=== PATIENT | female | born 1950 | race Caucasian/White ===

== ENCOUNTER 2020-05-20 11:04 | Emergency (ER) | payer MEDICARE ==
[~2020-05-20] VITALS: Ht 147.3 cm; Wt 92.0 kg
[~2020-05-20 11:04] MED LIST: CALC-138 PO; CHOL400C PO; GLIP10TA24 PO; METF500T27 PO; PRAV20TA2 PO
--- NOTE | 2020-05-20 11:22 | NUR ---
ITZEL LANCASTER AT BEDSIDE.
--- NOTE | 2020-05-20 11:37 | NUR ---
PT IN RAD.
--- NOTE | 2020-05-20 12:08 | NUR ---
PT TRANSFERED TO WHEELCHAIR FROM [facility] W/O JESUS MANUEL. PT WHEELED TO BR ACCOMPANIED BY FAMILY MEMBER.
--- NOTE | 2020-05-20 12:19 | NUR ---
PT RETURNED TO ROOM W/O INCIDENT. URINE COLLECTED AND SENT TO LAB. FRANCISCO CRAVAJAL. AWAITING RESULTS.
[2020-05-20 12:28] LABS: MICROSCOPIC AUTO
[2020-05-20] MEDS ORDERED: HYDROcodone/APAP 5/325 TABLET PO ONE (12:30)
[2020-05-20] MEDS ORDERED: HYDROcodone/APAP 5/325 TABLET ONE (12:35)
--- NOTE | 2020-05-20 12:40 | NUR ---
PT MEDICATED PER EMAR. ALL TESTS RESULTED. PT IS UP FOR RECHECK AT THIS TIME.
[2020-05-20 13:10] VITALS: BP 130/70
--- NOTE | 2020-05-20 13:10 | NUR ---
break RN: assumed care of pt on behalf of denisha RN for lunch break only. pt resting in position of comfort. no apparent distress. chart up for MD recheck
--- NOTE | 2020-05-20 14:35 | NUR ---
Patient given discharge instructions and they have confirmed that they understand the instructions. Patient ambulatory with steady gait using provided walker.
== END 2020-05-20 14:36 ==
LOC: ED 13:23
DX: G89.11 Acute pain due to trauma (principal); M51.36 Other intervertebral disc degeneration, lumbar region; M54.16 Radiculopathy, lumbar region; E11.9 Type 2 diabetes mellitus without complications; E78.00 Pure hypercholesterolemia, unspecified; X58.XXXA Exposure to other specified factors, initial encounter; Y93.89 Activity, other specified; Y92.89 Other specified places as the place of occurrence of the external cause; Y99.8 Other external cause status
CPT/HCPCS: 72110; 81001; 87077; 87086; 87186; 99284